=== PATIENT | female | born 1995 | race Hispanic/Latino ===

== ENCOUNTER 2018-07-15 12:43 | Observation (INO) | payer MEDICAID ==
[~2018-07-15 12:43] MED LIST: IBUP-2070 PO
[2018-07-15 13:31] LABS: APPEARANCE,URINE Cloudy (CLEAR); BILIRUBIN,URINE Negative (NEGATIVE); COLOR,URINE Dark Yellow (YELLOW); GLUCOSE, URINE (UA) Negative (NEGATIVE); KETONES,URINE Trace mg/dL (NEGATIVE); LEUKOCYTE ESTERASE ,URINE Small (NEGATIVE); NITRATE,URINE Negative (NEGATIVE); OCCULT BLOOD,URINE Negative (NEGATIVE); PH,URINE 6.5 (5.0-8.0); PROTEIN,URINE Trace (NEGATIVE)
[2018-07-15 13:32] LABS: BACTERIA,URINE Rare /HPF (None Seen); MUCUS,URINE Rare LPF (None Seen); RBC,URINE 0-1 /HPF (0-1); SQUAMOUS EPITHELIAL CELL,UR Few /HPF (0-2)
== END 2018-07-15 14:27 | disposition home or self-care (01) ==
LOC: LDH 12:43
PROVIDERS: ADMIT Obstetrics & Gynecology; ATTEND Obstetrics & Gynecology
DX: O26.893 Other specified pregnancy related conditions, third trimester (principal); R10.9 Unspecified abdominal pain; Z3A.37 37 weeks gestation of pregnancy
CPT/HCPCS: 81001; G0378 ×3

== ENCOUNTER 2018-07-17 14:24 | Observation (INO) | payer MEDICAID ==
[~2018-07-17] VITALS: Ht 175.3 cm; Wt 117.9 kg
[2018-07-17 15:24] LABS: APPEARANCE,URINE CLOUDY (CLEAR); BILIRUBIN,URINE SMALL (NEGATIVE); COLOR,URINE YELLOW (YELLOW); GLUCOSE, URINE (UA) NEGATIVE (NEGATIVE); KETONES,URINE 5 mg/dL (NEGATIVE); LEUKOCYTE ESTERASE ,URINE MODERATE (NEGATIVE); NITRATE,URINE NEGATIVE (NEGATIVE); OCCULT BLOOD,URINE NEGATIVE (NEGATIVE); PH,URINE 5.5 (5.0-8.0); PROTEIN,URINE TRACE (NEGATIVE); UROBILINOGEN,URINE 0.2 mg/dL (0.2-1.0)
[2018-07-17 15:33] LABS: BACTERIA,URINE Moderate /HPF (None Seen); MUCUS,URINE Moderate LPF (None Seen); RBC,URINE 0-1 /HPF (0-1); SQUAMOUS EPITHELIAL CELL,UR Moderate /HPF (0-2)
[2018-07-17] MEDS ORDERED: CEFTRIAXONE SODIUM 1 GM IVP SCH (16:00)
[2018-07-17] MEDS ORDERED: LACTATED RINGERS 1000ML 1,000 ML IV SCH (16:00)
== END 2018-07-17 17:07 | disposition home or self-care (01) ==
LOC: LDH 14:24
PROVIDERS: ADMIT Obstetrics & Gynecology; ATTEND Obstetrics & Gynecology
DX: O62.9 Abnormality of forces of labor, unspecified (principal); Z3A.37 37 weeks gestation of pregnancy
CPT/HCPCS: 81001; 96374; G0378 ×4; J0696; J7120; 96360

== ENCOUNTER 2023-08-06 05:44 | Emergency (ER) | payer MEDICAID, OTHER ==
[~2023-08-06] VITALS: Ht 172.7 cm; Wt 130.2 kg
[2023-08-06 05:46] VITALS: BP 147/89; PULSE 80; RESP 18
[2023-08-06] MEDS ORDERED: CEFTRIAXONE 1G VIAL IM ONE (10:00)
[2023-08-06] MEDS ORDERED: KETOROLAC 60 MG VIAL (30MG/ML) IM ONE (10:00)
[2023-08-06] MEDS ORDERED: IBUP-2070 PO (11:50)
[2023-08-06] MEDS ORDERED: AMOX500C2 PO (11:50)
[2023-08-06] MEDS ORDERED: CORTSOL AD (11:50)
== END 2023-08-06 12:16 | disposition left against medical advice (07) ==
LOC: EDH 05:44
DX: H92.01 Otalgia, right ear (principal); H60.91 Unspecified otitis externa, right ear
CPT/HCPCS: 99283; J0696; J1885